=== PATIENT | male | born 1990 | race Two or more races ===

== ENCOUNTER 2021-08-24 13:55 | Emergency (ER) | payer SELFPAY ==
[~2021-08-24] VITALS: Ht 167.6 cm; Wt 86.2 kg
--- NOTE | 2021-08-24 13:55 | NUR ---
PT BIB FRIEND C/O NAUSEA AND VOMITING. PT IS AAOX4, NOT IN RESPIRATORY DISTRESS, HOOKED TO V/S MONITOR. KEPT RESTED AND COMFORTABLE. WILL CONTINUE TO MONITOR.
--- NOTE | 2021-08-24 14:18 | NUR ---
SEEN AND EXAMINED BY
[2021-08-24] MEDS ORDERED: IV NS 0.9% 1,000 ML BAG IV ONE (14:30)
[2021-08-24] MEDS ORDERED: ONDANSETRON HCL/PF 4 MG/2 ML VIAL IVP ONE (14:30)
[2021-08-24] MEDS ORDERED: ONDANSETRON HCL/PF 4 MG/2 ML VIAL ONE (14:30)
--- NOTE | 2021-08-24 14:55 | NUR ---
GENERAL INTERNIST AND PHYSICIAN LEADER AT BEDSIDE FOR XRAY.
[2021-08-24 14:58] LABS: BASOPHILS # (AUTO) 0.1 K/uL (0.0-0.2); BASOPHILS % (AUTO) 0.4 % (0.0-2.0); EOSINOPHILS % (AUTO) 1.6 % (0.0-6.0); HEMATOCRIT 46 % (39-51); HEMOGLOBIN 15.2 g/dL (13.5-17.5); LYMPHOCYTES # (AUTO) 2.5 K/uL (0.8-4.8); LYMPHOCYTES % (AUTO) 19.5 % (20.0-44.0); MEAN CORPUSCULAR HGB CONC 33 g/dl (31.0-36.0); MEAN CORPUSCULAR VOLUME 81 fL (80-96); MONOCYTES # (AUTO) 0.7 K/uL (0.1-1.30); MONOCYTES % (AUTO) 5.6 % (2.0-12.0); NEUTROPHILS # (AUTO) 9.4 K/uL (1.8-8.9); NEUTROPHILS % (AUTO) 72.9 % (43.0-81.0); PLATELET COUNT (AUTO) 221 K/uL (150-450); RED BLOOD CELL COUNT(AUTO) 5.69 MIL/uL (4.5-6.0); WHITE BLOOD COUNT (AUTO) 12.9 K/uL (4.3-11.0)
[2021-08-24 15:17] LABS: ALANINE AMINOTRANSFERASE 54 U/L (12-78); ALKALINE PHOSPHATASE 91 U/L (46-116); ASPARTATE AMINOTRANSFERASE 25 U/L (15-37); BILIRUBIN,DIRECT 0.1 mg/dL (0.0-0.2); BILIRUBIN,TOTAL 0.7 mg/dL (0.2-1.0); CALCIUM, SERUM 9.3 mg/dL (8.5-10.1); CARBON DIOXIDE 25 mmol/L (21-32); CHLORIDE 102 mmol/L (98-107); CREATININE 1.1 mg/dL (0.6-1.3); GLUCOSE 112 mg/dL (74-106); LIPASE 61 U/L (73-393); POTASSIUM 3.8 mmol/L (3.5-5.1); SODIUM SERUM 138 mmol/L (136-145); UREA NITROGEN, BLOOD 14 mg/dL (7-18)
[2021-08-24] MEDS ORDERED: ONDA4TAB5 PO (15:39)
--- NOTE | 2021-08-24 15:51 | NUR ---
IV removed. Catheter intact and site benign. Pressure and 4x4 applied to site. No bleeding noted. Patient discharged to home in stable condition. Written and verbal after care instructions given. Patient verbalizes understanding of instruction.
[2021-08-24 15:56] VITALS: BP 127/78
== END 2021-08-24 15:57 | disposition home or self-care (01) ==
LOC: ER 14:02
DX: R55 Syncope and collapse (principal); R42 Dizziness and giddiness; F41.9 Anxiety disorder, unspecified
CPT/HCPCS: 36415; 71045; 80048; 80076; 83690; 84484; 85025; 93005; 96361; 96374; 99285; J2405; J7030

== ENCOUNTER 2021-08-25 15:01 | Emergency (ER) | payer SELFPAY ==
[~2021-08-25 15:01] MED LIST: ONDA4TAB5 PO
[2021-08-25] MEDS ORDERED: IV NS 0.9% 1,000 ML BAG IV ONE (15:30)
[2021-08-25] MEDS ORDERED: ONDANSETRON HCL/PF 4 MG/2 ML VIAL IVP ONE (15:30)
--- NOTE | 2021-08-25 15:30 | NUR ---
Called No response- [facility]
--- NOTE | 2021-08-25 15:58 | NUR ---
called - no answer
--- NOTE | 2021-08-25 16:10 | NUR ---
Called - NO response
== END 2021-08-25 16:11 | disposition home or self-care (01) ==
LOC: ER 15:02
DX: Z53.21 Procedure and treatment not carried out due to patient leaving prior to being seen by health care provider (principal)